=== PATIENT | male | born 1945 | race Caucasian/White ===

== ENCOUNTER 2020-04-18 14:12 | Emergency (ER) | payer OTHER, MEDICARE ==
[2020-04-18 14:40] VITALS: BMI 24.7
[2020-04-18] MEDS ORDERED: BAMLANIVIMAB 700 MG in SODIUM CHLORIDE 180 ML IVPB ONE (14:43)
[2020-04-18 16:09] LABS: BASO % 0.7 % (0-2.0); EOS % 0.2 % (0-4.5); HEMATOCRIT 41.6 % (35.4-49); HEMOGLOBIN 13.7 GM/dL (11.7-16.9); LYMPH % 38.1 % (8-40); MCH 31.5 pg (25.7-33.7); MCHC 32.9 g/dl (32.0-35.9); MEAN CELL VOLUME 95.8 fl (80-96); MEAN PLT VOLUME 8.6 fl (7.5-11.1); MONO % 21.9 % (3.8-10.2); NEUT % 39.1 % (42.8-82.8); PLATELET COUNT 176 K/MM3 (134-434); RBC 4.34 M/mm3 (4.00-5.60); WHITE BLOOD COUNT 3.5 K/mm3 (4.0-10.0)
[2020-04-18 16:33] LABS: CALCIUM 9.4 mg/dL (8.5-10.1)
[2020-04-18 16:34] LABS: ALBUMIN 3.5 g/dl (3.4-5.0); BLOOD UREA NITROGEN 11.5 mg/dL (7-18)
[2020-04-18 16:37] LABS: CREATININE 1.4 mg/dL (0.55-1.3)
[2020-04-18 16:39] LABS: BILIRUBIN,TOTAL 0.3 mg/dL (0.2-1); TOT PROT 6.8 g/dl (6.4-8.2)
[2020-04-18] MEDS ORDERED: SODIUM CHLORIDE 0.9% 500 ML INFUS.BAG IV ONE (17:12)
[2020-04-18 17:36] VITALS: BP 139/74; PULSE 78; TEMP 100
[2020-04-18 20:06] LABS: ANISOCYTOSIS 1+; MACROCYTOSIS 0; PLATELET ESTIMATE NORMAL
== END 2020-04-18 19:15 | disposition home or self-care (01) ==
LOC: JER 14:12
DX: U07.1 COVID-19 (principal)
CPT/HCPCS: 36415; 71046-TC-FY; 80053; 85025; 99284-25; M0239; Q0239